=== PATIENT | male | born 1945 | race Caucasian/White ===

== ENCOUNTER → 2022-03-19 | Outpatient (CLI) | payer OTHER ==
[~2022-03-19] MED LIST: AMLO2.5T4 PO; CHOL100040 PO; FLO0.4C PO; LISI20TA28 PO; SIMV-42 PO; [UNRECOGNIZED DRUG - CODE] PO
[2022-03-19 10:15] LABS: BASOPHILS # (AUTO) 0.1 X10'3 (0-0.2); BASOPHILS % (AUTO) 1.3 % (0-1); EOSINOPHILS # (AUTO) 0.2 X10'3 (0-0.9); EOSINOPHILS % (AUTO) 1.7 % (0-6); LYMPHOCYTES # (AUTO) 2.5 X10'3 (1.1-4.8); LYMPHOCYTES % (AUTO) 25.5 % (21-51); MEAN CORPUSCULAR HEMOGLOBIN 30.3 PG (27.0-31.0); MEAN CORPUSCULAR VOLUME 91.7 FL (78-98); MEAN PLATELET VOLUME 7.7 FL (7.4-10.4); MONOCYTES # (AUTO) 0.8 X10'3 (0-0.9); MONOCYTES % (AUTO) 8.7 % (2-12); NEUTROPHILS # (AUTO) 6.1 X10'3 (1.8-7.7); NEUTROPHILS % (AUTO) 62.8 % (42-75); PRE OP HEMATOCRIT 53.7 % (42.0-52.0); PRE OP HEMOGLOBIN 17.7 g/dL (14.0-17.9); PRE OP PLATELET COUNT 225 X10'3 (140-440); RED BLOOD COUNT 5.86 X10'6 (4.70-6.10); RED CELL DISTRIBUTION WIDTH 13.5 % (11.5-14.5)
[2022-03-19 10:29] LABS: ALBUMIN 3.8 G/DL (3.4-5.0); ALBUMIN/GLOBULIN RATIO 1.2 (1.1-1.5); ALKALINE PHOSPHATASE 90 IU/L (46-116); BLOOD UREA NITROGEN 24 MG/DL (7-18); BUN/CREATININE RATIO 15.4 (5.4-32.0); CHLORIDE 102 MMOL/L (99-107); CREATININE 1.56 MG/DL (0.60-1.10); PRE OP ALT 14 U/L (30-65); PRE OP ANION GAP 7 (8-16); PRE OP AST 14 U/L (10-37); PRE OP BILIRUB, TOTAL 1.2 MG/DL (0.0-1.0); PRE OP GLUCOSE 127 MG/DL (70-104); PRE OP POTASSIUM 3.7 MMOL/L (3.4-5.1); PRE OP SODIUM 139 MMOL/L (135-145); TOTAL CARBON DIOXIDE 29.7 MMOL/L (24-32); eGFR 43 ML/MIN
== END | disposition home or self-care (01) ==
LOC: LAB 08:00 → EDSTATUS 03-26 08:00
PROVIDERS: ATTEND Surgery
DX: Z01.818 Encounter for other preprocedural examination (principal); K40.90 Unilateral inguinal hernia, without obstruction or gangrene, not specified as recurrent
CPT/HCPCS: 36415; 80053; 85025

== ENCOUNTER 2022-04-23 09:06 | Day surgery (SDC) | payer OTHER ==
[2022-04-16 14:16] LABS: BASOPHILS # (AUTO) 0.1 X10'3 (0-0.2); BASOPHILS % (AUTO) 0.7 % (0-1); EOSINOPHILS # (AUTO) 0.2 X10'3 (0-0.9); EOSINOPHILS % (AUTO) 1.9 % (0-6); LYMPHOCYTES % (AUTO) 21.9 % (21-51); MEAN CORPUSCULAR HEMOGLOBIN 30.4 PG (27.0-31.0); MEAN CORPUSCULAR HGB CONC 33.1 g/dL (33.0-36.5); MEAN CORPUSCULAR VOLUME 91.7 FL (78-98); MONOCYTES # (AUTO) 0.8 X10'3 (0-0.9); MONOCYTES % (AUTO) 8.8 % (2-12); NEUTROPHILS # (AUTO) 6.2 X10'3 (1.8-7.7); NEUTROPHILS % (AUTO) 66.7 % (42-75); PRE OP HEMATOCRIT 50.4 % (42.0-52.0); PRE OP HEMOGLOBIN 16.7 g/dL (14.0-17.9); PRE OP PLATELET COUNT 212 X10'3 (140-440); RED CELL DISTRIBUTION WIDTH 13.3 % (11.5-14.5)
[2022-04-16 14:24] LABS: ALBUMIN 3.7 G/DL (3.4-5.0); ALBUMIN/GLOBULIN RATIO 1.3 (1.1-1.5); ALKALINE PHOSPHATASE 85 IU/L (46-116); BLOOD UREA NITROGEN 19 MG/DL (7-18); BUN/CREATININE RATIO 12.7 (5.4-32.0); CALCIUM 8.5 MG/DL (8.5-10.1); CHLORIDE 105 MMOL/L (99-107); PRE OP ALT 14 U/L (30-65); PRE OP ANION GAP 5 (8-16); PRE OP AST 14 U/L (10-37); PRE OP BILIRUB, TOTAL 0.7 MG/DL (0.0-1.0); PRE OP GLUCOSE 117 MG/DL (70-104); PRE OP POTASSIUM 3.7 MMOL/L (3.4-5.1); PRE OP SODIUM 141 MMOL/L (135-145); TOTAL CARBON DIOXIDE 30.6 MMOL/L (24-32); TOTAL PROTEIN 6.5 G/DL (6.4-8.2); eGFR 45 ML/MIN
[2022-04-23] VITALS (13 sets, daily range): BP systolic 78–129; BP diastolic 60–82
[~2022-04-23] VITALS: Ht 170.2 cm; Wt 80.9 kg
[~2022-04-23 09:06] MED LIST changes: +ceFAZolin inj. 3,000 MG in normal saline 100ml IV soln 100 ML IV ONE; +famotidine 20mg tablet PO ONE; +ringers solution, lacted 1,000 ML IV SCH
[2022-04-23] MEDS ORDERED: BUPIVAcaine 0.5% inj/PF 0 ML ONE (10:55)
[2022-04-23] MEDS ORDERED: ringers solution, lacted 1,000 ML IV SCH (11:00)
[2022-04-23] MEDS ORDERED: morphine 4 MG/ML inj SYRINge IV PRN (11:00)
[2022-04-23] MEDS ORDERED: meperidine/PF 25mg/ml syringe IV PRN ×3 (11:00)
[2022-04-23] MEDS ORDERED: morphine 2 MG/ML inj. syringe IV PRN (11:00)
[2022-04-23] MEDS ORDERED: proCHLORperazine 10 MG/2 ml inj IV PRN (11:00)
[2022-04-23] MEDS ORDERED: ondansetron/PF 4mg/2ml inj IV PRN (11:00)
[2022-04-23] MEDS ORDERED: sevoflurane 250ml liquid IH ONE (11:03)
[2022-04-23] MEDS ORDERED: ePHEDrine 50MG/ML INJ. ONE (11:03)
[2022-04-23] MEDS ORDERED: fentaNYL/PF 50MCG/1 ML 2ML syringe ONE (11:07)
[2022-04-23] MEDS ORDERED: midazolam 1 mg/ML 2ml injection ONE (11:08)
[2022-04-23] MEDS ORDERED: propofol inj 20 ML IV ONE (11:19)
[2022-04-23] MEDS ORDERED: dexamethasone sod phosphate 4mg/ml inj. ONE (11:20)
[2022-04-23] MEDS ORDERED: rocuronium 10mg/ml inj IV ONE (11:20)
[2022-04-23] MEDS ORDERED: BUPIVAcaine 0.5% inj/PF 30 ml vial IJ ONE (11:30)
[2022-04-23] MEDS ORDERED: ondansetron/PF 4mg/2ml inj ONE (12:00)
[2022-04-23] MEDS ORDERED: sugammadex 200mg/2ml injection IV ONE (12:07)
--- NOTE | 2022-04-23 12:17 | NUR ---
Received from OR via [facility] , accompanied by Anesthesiologist and report given by Anesthesiolgist. PATIENT WITH 10L MASK ON WITH 97% SATURATIONS. VSS. 20G PIVIN LEFT HAND RUNNING LR AT 100. LEFT INGUINAL ISLAND DRESSING IS CDI. NO C.O. PAIN AT THIS TIME. VSS. 20G PIV IN LEFT HAND RUNNING LR AT 100. Addendum: 04/23/22 at 1236 by Torey Caputo RN, RN Amended: Links added.
--- NOTE | 2022-04-23 14:28 | NUR ---
ALL DISCHARGE CRITERIA HAS BEEN MET. VSS, PAIN AT A TOLERABLE LEVEL, VOIDING AND ABLE TO SAFELY AMBULATE AND TRANSFER SELF. IV TAKEN OUT WITHOUT ANY COMPLICATIONS. ALL DISCHARGE INSTRUCTIONS COVERED WITH PATIENT AND ALL QUESTIONS ANSWERED. PATIENT TAKEN OUT VIA WHEELCHAIR TO PERSONAL VEHICLE WHERE FAMILY/FRIEND DROVE PATIENT HOME. VOIDED WITH MINIMAL POST SCAN URINE. 100CC. \VOIDED WITH STREAM AND WITHOUT COMPLAINTS. STATES THIS IS NORMAL BECAUSE OF HIS ENLARGED PROSTATE. Addendum: 04/23/22 at 1430 by Torey Caputo RN, RN Amended: Links added.
== END 2022-04-23 14:27 | disposition home or self-care (01) ==
LOC: PAS 09:06
PROVIDERS: ATTEND Surgery
DX: K40.90 Unilateral inguinal hernia, without obstruction or gangrene, not specified as recurrent (principal); I10 Essential (primary) hypertension; G47.30 Sleep apnea, unspecified; N40.0 Benign prostatic hyperplasia without lower urinary tract symptoms; Z79.899 Other long term (current) drug therapy; Z90.49 Acquired absence of other specified parts of digestive tract
CPT/HCPCS: 36415; 49505; 80053; 82948; 85025; C1781; J0690; J1100; J2250; J2405; J2704; J3010; J3490; J7030; J7120; S0020; Z7506; Z7508; Z7512; A4215; A4618; A6449; A7000